=== PATIENT | male | born 1995 | race Hispanic/Latino ===

== ENCOUNTER 2017-12-28 18:20 | Emergency (ER) | payer OTHER, SELFPAY ==
[2017-12-28 18:48] LABS: Absolute Lymphocytes (CBC) 2.1 K/uL (0.7-4.9); Absolute Monocytes 0.6 K/uL (0.1-1.3); Absolute Neutrophil 4.6 K/uL (1.8-8.0); Basophils % 0.7 % (0-1.3); Eosinophils % 1.3 % (0-4.4); Hematocrit 41.9 % (39.6-49.0); Lymphocytes % 28.4 % (15.3-44.8); MCH 30.3 pg (27.0-35.0); MCV 88.1 fL (80-100); MPV 10.4 fL (7.6-11.3); Monocytes % 7.5 % (3.3-12.3); RBC Red Blood Cell Count 4.76 M/uL (4.33-5.43)
[2017-12-28] MEDS ORDERED: ONDANSETRON 4 MG/2 ML VIAL ONE (18:57)
[2017-12-28] MEDS ORDERED: MORPHINE 4 MG/ML SYR ONE (18:57)
[2017-12-28 19:10] LABS: BUN Blood Urea Nitrogen 15 mg/dL (7-18); Bicarbonate 28 mmol/L (21-32); Glucose Level 87 mg/dL (74-106); Potassium 3.6 mmol/L (3.5-5.1); Sodium Level 141 mmol/L (136-145)
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
[2017-12-28] MEDS ORDERED: CYCLOBENZAPRINE 10 MG TAB ONE (19:55)
[2017-12-28] MEDS ORDERED: IBUPROFEN 400 MG TAB ONE (19:56)
[2017-12-28 20:29] VITALS: BP 113/68; TEMP 98; O2SAT 100
== END 2017-12-28 20:22 | disposition home or self-care (01) ==
LOC: ER 18:20
DX: M54.2 Cervicalgia (principal); M54.9 Dorsalgia, unspecified; V43.52XA Car driver injured in collision with other type car in traffic accident, initial encounter
CPT/HCPCS: 36415; 70450; 71045; 71260; 72125; 72170; 74177; 80048; 85025; 86850; 86900; 86901; 96374; 96375; 99285; J2405; Q9967

== ENCOUNTER 2019-04-06 09:50 | Emergency (ER) | payer SELFPAY ==
--- OUTSIDE RECORDS SUMMARY | 2019-04-06 09:52 | XMS REPORT ---
:1995 [facility] Address [address] [place] [address] [place] [id number] Care Team Providers Name Role Phone Unavailable Unavailable Unavailable Problems This patient has no known problems. Allergies, Adverse Reactions, Alerts This patient has no known allergies or adverse reactions. Medications This patient has no known medications.
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
[2019-04-06 10:49] VITALS: BP 129/90; TEMP 98.4; O2SAT 100
== END 2019-04-06 10:44 | disposition home or self-care (01) ==
LOC: ER 09:50
DX: M79.18 Myalgia, other site (principal); V43.62XA Car passenger injured in collision with other type car in traffic accident, initial encounter; Y93.9 Activity, unspecified; Y92.410 Unspecified street and highway as the place of occurrence of the external cause
CPT/HCPCS: 99282